=== PATIENT | female | born 1985 | race Caucasian/White ===

== ENCOUNTER → 2022-11-02 | Outpatient (CLI) | payer MEDICAID ==
--- NOTE | 2022-11-02 14:36 | Diagnostic Imaging Report ---
US THYROID SOFT TISSUE NECK Indication: THYROMEGALY Technique: Thyroid ultrasound was performed. Comparison: None. Findings: The right thyroid lobe is normal in echogenicity measuring 4.8 x 1.5 x 1.6 cm cm. The isthmus measures 5.5 x 1.3 x 2.0 cm cm. The left thyroid lobe is normal in echogenicity measuring 0.3 cm cm. There is no increased vascularity within the thyroid gland. There is no evidence of perithyroid lymph nodes. Few small follicular cysts within the thyroid. No suspicious thyroid lesions. Impression: Unremarkable thyroid ultrasound. Dictated by: Dictated on workstation # [id number]
== END ==
LOC: RAD 13:27
PROVIDERS: ATTEND Pain Medicine Interventional Pain Medicine
DX: E01.0 Iodine-deficiency related diffuse (endemic) goiter (principal)
CPT/HCPCS: 76536